=== PATIENT | female | born 1935 | race Caucasian/White ===

== ENCOUNTER 2017-12-18 11:35 | Emergency (ER) | payer MEDICARE ==
[2017-12-18] MEDS ORDERED: POTASSIUM CHLO10 ME1 PO (12:23)
[2017-12-18] MEDS ORDERED: HYDROCHLOROTHIA25 MG (12:23)
[2017-12-18] MEDS ORDERED: ZOLOFT20 MG/1 ML (12:24)
[2017-12-18] MEDS ORDERED: MICARDIS20 MG (12:25)
[2017-12-18 15:29] VITALS: BP 132/80
[2017-12-18] MEDS ORDERED: ACETAMINOPHEN 325 MG TAB PO ONE (15:30)
== END 2017-12-18 15:13 | disposition home or self-care (01) ==
LOC: FSED 11:35
DX: S00.93XA Contusion of unspecified part of head, initial encounter (principal); S16.1XXA Strain of muscle, fascia and tendon at neck level, initial encounter; I10 Essential (primary) hypertension; W01.198A Fall on same level from slipping, tripping and stumbling with subsequent striking against other object, initial encounter; Y92.512 Supermarket, store or market as the place of occurrence of the external cause; G25.0 Essential tremor
CPT/HCPCS: 99284